=== PATIENT | male | born 1990 | race Caucasian/White ===

== ENCOUNTER 2019-07-30 20:13 | Emergency (ER) | payer OTHER ==
[~2019-07-30] VITALS: Ht 170.2 cm; Wt 117.9 kg
[2019-07-30 20:25] VITALS: Ht 170.2 cm; Wt 117.9 kg
[2019-07-30 21:48] LABS: BASOPHIL % 0.3 % (0-2); PLATELET COUNT 196 x10^3mcL (130-400)
[2019-07-30 21:55] LABS: CALCIUM 8.7 mg/dL (8.5-10.1); CARBON DIOXIDE 30.7 mmol/L (21-32); CHLORIDE SERUM 104 mmol/L (98-107); CREATININE SERUM 0.9 mg/dL (0.7-1.3); GFR1 > 60 mL/min; GLUCOSE SERUM 111 mg/dL (74-106); POTASSIUM SERUM 4.3 mmol/L (3.5-5.1); SODIUM SERUM 139 mmol/L (136-145)
[2019-07-30 22:01] LABS: ALKALINE PHOSPHATASE 43 U/L (46-116); ALT/SGPT 155 U/L (16-63); AST/SGOT 77 U/L (15-37); BILIRUBIN TOTAL 0.4 mg/dL (0.20-1.00)
[2019-07-30 22:11] LABS: TOTAL PROTEIN, SERUM 8.3 g/dL (6.4-8.2)
[2019-07-31 02:42] VITALS: BP 132/75
== END 2019-07-31 02:42 | disposition home or self-care (01) ==
LOC: ED 20:13
PROVIDERS: Emergency Medicine
DX: J06.9 Acute upper respiratory infection, unspecified (principal)
CPT/HCPCS: 36415; J1885; Q0162